=== PATIENT | female | born 1985 | race Caucasian/White ===

== ENCOUNTER 2022-05-26 18:24 | Emergency (ER) | payer OTHER, MEDICAID ==
[~2022-05-26] VITALS: Ht 144 cm; Wt 67.0 kg
[~2022-05-26 18:24] MED LIST: AZIT250T12 PO; BUDE10.2 IH; METH4TAB PO; [UNRECOGNIZED DRUG - CODE] PO; [UNRECOGNIZED DRUG - OTHER]
[2022-05-26] MEDS ORDERED: TETANUS,DIPTH,PERTUSS P/F (BOOSTRIX) 0.5 ML VIAL IM ONE (19:00)
[2022-05-26] MEDS ORDERED: LIDOCAINE 1% INJ 20 ML VIAL INJ ONE (19:00)
--- NOTE | 2022-05-26 19:11 | Diagnostic Imaging Report ---
CLINICAL HISTORY: Right wrist pain. Laceration. Evaluate for foreign body. COMPARISON: None. TECHNIQUE: 2 views of the right wrist. FINDINGS: There is no acute fracture or dislocation of the right wrist. Alignment is anatomic. The imaged joint spaces are preserved. No radiopaque foreign body is seen in the soft tissues of the right wrist. IMPRESSION: 1. No acute fracture or dislocation in the right wrist. 2. No radiopaque foreign bodies. Dictated by: Dictated on workstation # [id number]
--- NOTE | 2022-05-26 19:45 | ED Upper Extremity ---
General Chief Complaint: Upper Extremity Stated Complaint: RIGHT WRIST LAC Nursing Triage Note: PT HAS LAC TO R WRIST AREA FROM APPROX 1.5CM FROM BROKEN DISHES. (WESLEY TOVAR APRN) History of Present Illness Date Seen by Provider: May 26, 2022 Time Seen by Provider: 18:45 Initial Comments Patient is a 36-year-old female who presents to the emergency department for evaluation of a laceration to her right wrist that occurred approximately an hour prior to arrival when a glass bowl she was holding broke. She states she held direct pressure to the wound and was able to get the bleeding to stop. She is unsure of the date of her last tetanus immunization. She denies any other pain or injury at this time. States she is unsure if all of the broken glass is out of the wound. States she has full sensation and movement in all the digits of her right hand and is able to flex and extend her right wrist. (WESLEY TOVAR APRN) Allergies and Home Medications Allergies Coded Allergies: Penicillins (Unverified Adverse Reaction, Unknown, 03/05/15) Uncoded Allergies: TAPE (Allergy, Unknown, 05/26/22) Patient Home Medication List Home Medication List Reviewed: Yes (WESLEY TOVAR APRN) Azithromycin (Azithromycin) 250 Mg Tablet, 250 MG PO UD Prescribed by: SHERYL TOLEDO on 03/05/152140 Budesonide/Formoterol Fumarate (Symbicort 160-4.5 Mcg Inhaler) 10.2 Gm Hfa.aer.ad, 2 PUFF IH BID, (Reported) Entered as Reported by: LES CHANEL on 03/05/152135 Guaifenesin/Dextromethorphan (Delsym Cough+Chest Cngst Dm Lq) 180 Ml Liquid, 180 ML PO, (Reported) Entered as Reported by: LES CHANEL on 03/05/152135 Methylprednisolone (Medrol) 4 Mg Tab.ds.pk, 4 MG PO UD Prescribed by: SHERYL TOLEDO on 03/05/152140 [Cough Suppresant] , (Reported) Entered as Reported by: LES CHANEL on 03/05/152135 Review of Systems Constitutional: no symptoms reported EENTM: no symptoms reported Respiratory: no symptoms reported Cardiovascular: no symptoms reported Gastrointestinal: no symptoms reported Genitourinary: no symptoms reported Skin: see HPI (WESLEY TOVAR APRN) Past Azyyoco-Urbxlx-Kjilhi Hx Patient Social History Tobacco Use?: No Use of E-Cig and/or Vaping dev: Yes E-Cig or Vaping type used: Nicotine Substance use?: No Alcohol Use?: No Pt feels they are or have been: No (WESLEY TOVAR APRN) Seasonal Allergies Seasonal Allergies: Yes (WESLEY TOVAR APRN) Past Medical History Surgery/Hospitalization HX: TUBAL Tubal Ligation (WESLEY TOVAR APRN) Physical Exam Vital Signs Vital Signs - First Documented 05/26/22 05/26/22 18:32 20:03 Temp 36.8 Pulse 102 Resp 18 B/P (MAP) 154/88 (110) Pulse Ox 98 O2 Delivery Room Air (HILLARY,VAHID K DO) Vital Signs Capillary Refill : Less Than 3 Seconds (WESLEY TOVAR APRN) Height, Weight, BMI Height: 5'" Weight: 110lbs. oz. 49.186921xz; 32.00 BMI Method:Stated General Appearance: WD/WN, no apparent distress HEENT: PERRL/EOMI, normal ENT inspection, TMs normal, pharynx normal Neck: non-tender, full range of motion, supple, normal inspection Cardiovascular: regular rate, rhythm Respiratory: chest non-tender, lungs clear, normal breath sounds, no respiratory distress, no accessory muscle use Gastrointestinal: non tender, soft Neurologic/Psychiatric: no motor/sensory deficits, alert, normal mood/affect, oriented x 3 2 cm laceration noted to the volar aspect of the right wrist; wound is hemostatic: No evidence of flexor tendon dysfunction (WESLEY TOVAR APRN) Procedures/Interventions Wound Location: Upper Extremities (Right wrist) Wound Length (cm): 2 Wound's Depth, Shape: superficial Wound Explored: clean Irrigated w/ Saline (ccs): 50 Betadine Prep?: Yes Anesthesia: 1% Lidocaine Volume Anesthetic (ccs): 2 Wound Debrided: minimal Suture: Prolene Suture Size: 5-0 Number of Sutures: 3 Layer Closure?: 1 Sterile Dressing Applied?: Yes (WESLEY TOVAR APRN) Progress/Results/Core Measures Results/Orders Blood Pressure Mean: 110 Progress Progress Note : Progress Note Patient is nontoxic and well-hydrated on exam. No evidence of any flexor tendon dysfunction as patient has the ability to fully flex all the digits of the right hand and make a fist. She is also able to flex the wrist. Neurovascular function intact in the distal right upper extremity. X-ray was obtained that reveals no radiopaque foreign bodies. Laceration was repaired as noted separately. Patient tolerated well. Tetanus was updated. Discussed wound care and need for suture removal in 5 to 7 days. Return precautions for symptomology discussed. Patient verbalized understanding. (WESLEY TOVAR APRN) Departure Impression Primary Impression: Laceration of right wrist Qualified Codes: S61.511A - Laceration without foreign body of right wrist, initial encounter Disposition: HOME, SELF-CARE Condition: Stable Departure-Patient Inst. Decision time for Depature: 19:45 (WESLEY TOVAR APRN) Referrals: DELMY RAY (PCP/Family) Primary Care Physician Patient Instructions: Laceration Repair With Stitches ED Add. Discharge Instructions: You will need to have your sutures removed in 5 to 7 days. All discharge instructions reviewed with patient and/or family. Voiced understanding. ATTENDING PHYSICIAN NOTE: I WAS PHYSICALLY PRESENT ER PHYSICIAN, BUT I WAS NOT INVOLVED IN ANY DECISION MAKING OR ANY CARE OF THIS PATIENT, AND I AM NOT COLLABORATING PHYSICIAN. (VAHID THORNTON DO) WESLEY TOVAR APRN May 26, 2022 19:45 VAHID THORNTON DO May 29, 2022 05:06
[2022-05-26 20:03] VITALS: BP 148/79
== END 2022-05-26 20:05 | disposition home or self-care (01) ==
LOC: EDUNIT# 18:24 → ER 18:26
DX: S61.511A Laceration without foreign body of right wrist, initial encounter (principal); F17.290 Nicotine dependence, other tobacco product, uncomplicated; Z23 Encounter for immunization; Z28.310 Unvaccinated for COVID-19; W25.XXXA Contact with sharp glass, initial encounter
CPT/HCPCS: 12002; 73100; 90715